=== PATIENT | female | born 1975 | race African-American/Black ===

== ENCOUNTER 2016-05-17 10:18 | Emergency (ER) | payer SELFPAY ==
[~2016-05-17] VITALS: Ht 167.6 cm; Wt 65.0 kg
[2016-05-17 10:21] VITALS: BP 139/78; PULSE 86; RESP 12; TEMP 98; O2SAT 100
[2016-05-17 11:55] LABS: BACTERIA, URINE OCC /hpf; BLOOD, URINE MOD (NEG); COMMENT (UR) CULT NOT INDICATED; CULTURE IF INDICATED CULT NOT INDICATED; GLUCOSE,URINE NEG (NEG); KETONE, URINE NEG (NEG); MUCUS URINE FEW /lpf (OCC); NITRITE,URINE NEG (NEG); PH, URINE 5.5 (5.0-8.5); SQUAMOUS EPITHELIAL CELL URINE 2 /hpf (0-5); URINE COLOR YELLOW (YELLW/STRAW)
--- NOTE | 2016-05-17 12:12 | PD ---
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 She has started to noticed this over past 2 months but lately it has become worse. She does not define this as discharge and it's not foul smelling she says. She is not sure if she is incontinent. She is also complaining of some lower abdominal pain. Patient is sexually active and does have unprotected sex every now and then. Currently she is having her period. No fever or chills. No history of nausea vomiting. No history of STDs in the past. Patient had a miscarriage 2 months ago prior to all these symptoms starting. She was 3 months at that time. Patient is A1. Vital signs were stable in the ER. [facility] Past Medical History Narrative Medical List of her past medical history as reviewed from the nursing note. Medical History: Denies Significant Hx Influenza Vaccination: No ?: Not LMP: 05-17-16 Past Surgical History Other Surgery: Yes (breast ) Social History Alcohol Use: No Tobacco Use: No Substance Use: No Allergies-Medications (Allergen,Severity, Reaction): Coded Allergies: No Known Allergies (Unverified , 05/17/16) Comments No known drug allergies. Reported Meds & Prescriptions Reported Meds & Active Scripts Active No Active Prescriptions or Reported Medications Narrative Medication List of her home medications reviewed from the nursing note. Review of Systems Except as stated in HPI: all other systems reviewed are Neg Physical Exam Narrative GENERAL: Awake, alert, no obvious distress SKIN: Warm and dry. HEAD: Atraumatic. Normocephalic. EYES: Pupils equal and round. No scleral icterus. No injection or drainage. ENT: No nasal bleeding or discharge. Mucous membranes pink and moist. NECK: Trachea midline. No JVD. CARDIOVASCULAR: Regular rate and rhythm. No murmur appreciated. RESPIRATORY: No accessory muscle use. Clear to auscultation. Breath sounds equal bilaterally. GASTROINTESTINAL: Abdomen soft, non-tender, nondistended. Hepatic and splenic margins not palpable. : External inspection shows some bleeding from the vaginal area. Patient has urethral mucosal prolapse. Speculum exam shows more blood in the vaginal vault and coming out of the os. No abnormal discharge. Swabs were collected. No adnexal tenderness or CMT. MUSCULOSKELETAL: No obvious deformities. No clubbing. No cyanosis. No edema. NEUROLOGICAL: Awake and alert. No obvious cranial nerve deficits. Motor grossly within normal limits. Normal speech. PSYCHIATRIC: Appropriate mood and affect; insight and judgment normal. Data Data Last Documented VS Vital Signs Date Time Temp Pulse Resp B/P Pulse Ox O2 Delivery O2 Flow Rate FiO2 05/17/16 10:21 98.0 86 12 139/78 100 Room Air Orders Gc And Chlamydia Pcr (05/17/16 11:16) Wet Prep Profile (05/17/16 11:16) Urinalysis - C+S If Indicated (05/17/16 11:16) Ed Urine Pregnancytest Poc (05/17/16 11:16) Labs Laboratory Tests Test 05/17/16 05/17/16 11:29 11:36 Urine Color YELLOW Urine Turbidity CLEAR Urine pH 5.5 Urine Specific [place] 1.024 Urine Protein NEG mg/dL Urine Glucose (UA) NEG mg/dL Urine Ketones NEG mg/dL Urine Occult Blood MOD Urine Nitrite NEG Urine Bilirubin NEG Urine Urobilinogen LESS THAN 2.0 MG/DL Urine Leukocyte Esterase NEG Urine RBC 13 /hpf Urine WBC 3 /hpf Urine Squamous Epithelial 2 /hpf Cells Urine Bacteria OCC /hpf Urine Mucus FEW /lpf Microscopic Urinalysis Comment CULT NOT INDICATED Clue Cells (Wet Prep) NONE SEEN Vaginal Trichomonas (Wet Prep) NONE SEEN Vaginal Yeast (Wet Prep) NONE SEEN Chlamydia trachomatis DNA NOT DETECTED (PCR) Neisseria gonorrhoeae DNA NOT DETECTED (PCR) MDM Medical Decision Making Medical Screen Exam Complete: Yes Emergency Medical Condition: Yes Medical Record Reviewed: Yes Differential Diagnosis UTI, urethral mucosal prolapse, STD Narrative Course 12:09 PM I would prefer to wait for the GC and chlamydia and wet prep results to come back before patient is treated. Clinical exam did not suggest STD. She does have urethral prolapse and I talked to her about it. I explained to her about the [employer] exercise. Awaiting for the UA result. Procedures EKG Prior to Arrival: No Diagnosis Primary Impression: Prolapse urethral mucosa Additional Impressions: Pelvic pain Dysmenorrhea Referrals: Ursula Gambino MD 1 week Primary Care Physician 3 days Additional Instructions: Please take Tylenol or Motrin for your pelvic pain. Did a pelvic exercises that has been described to you. You should do that 10-15 times a day. Called the STUDENT SU[employer] SERVICES DIRECTOR who is name and number been provided to you. If you're GC and/or chlamydia comes back positive we'll call you for treatment. Return to the ER if the condition worsens or any other new concerns. Otherwise follow-up with your primary care. Med/Other Pt SpecificInfo: No Change to Meds Scripts No Active Prescriptions or Reported Meds Disposition: 01 DISCHARGE HOME Condition: Stable Tomas Wilkins MD May 17, 2016 12:12
[2016-05-17 13:38] LABS: CHLAMYDIA PCR NOT DETECTED (NOT DETECT); NEISSERIA PCR NOT DETECTED (NOT DETECT)
== END 2016-05-17 12:28 | disposition home or self-care (01) ==
LOC: NEPE 10:18
DX: N81.0 Urethrocele (principal); R10.2 Pelvic and perineal pain; N94.6 Dysmenorrhea, unspecified
CPT/HCPCS: 81001; 84703; 87210; 87491; 87591; 99284